=== PATIENT | female | born 1980 | race African-American/Black ===

== ENCOUNTER 2017-06-21 12:32 | Inpatient (IN) | payer OTHER ==
[2017-06-21 14:36] LABS: BILIRUBIN,URINE NEGATIVE (NEG); CLARITY,URINE CLEAR; COLOR,URINE YELLOW; GLUCOSE,URINE NEGATIVE (NEG); NITRITE,URINE NEGATIVE (NEG); PROTEIN,URINE NEGATIVE (NEG-TRACE)
[2017-06-21 14:55] LABS: BACTERIA,URINE FEW /HPF (0-FEW); RBC,URINE RARE /HPF (0-2); SQUAMOUS EPITHELIAL CELL,UR OCC /LPF
[2017-06-21] MEDS ORDERED: LIDOCAINE 1% PF 30 ML VIAL. INJ (18:15)
[2017-06-21] MEDS ORDERED: AMPICILLIN SODIUM 1 GM in IV NORMAL SALINE 50ML 50 ML IV (18:15)
[2017-06-21] MEDS ORDERED: AMPICILLIN SODIUM 2 GM in IV NORMAL SALINE 100ML 100 ML IV (18:15)
[2017-06-21] MEDS ORDERED: BUTORPHANOL 2 MG/ML VIAL. IV ×2 (18:15)
[2017-06-21] MEDS ORDERED: MAG HYDROX/ALUMINUM HYD/SIMETH 30 ML ORAL.SUSP PO (18:15)
[2017-06-21] MEDS ORDERED: OXYTOCIN 30 UNIT/500 ML PREMIX 500 ML IV (18:15)
[2017-06-21] MEDS ORDERED: TERBUTALINE 1 MG/ML VIAL. SQ (18:15)
[2017-06-21] MEDS ORDERED: 0.9 % SODIUM CHLORIDE 10 ML DISP.SYRIN. IV (18:15)
[2017-06-21] MEDS ORDERED: IBUPROFEN 600 MG TABLET. PO (18:15)
[2017-06-21] MEDS ORDERED: fentaNYL PF VIAL 100 MCG/2 ML VIAL IV (18:15)
[2017-06-21] MEDS: IV RINGERS,LACTATED 1000ML 1,000 ML IV ×2 (18:26)
[2017-06-21 19:13] LABS: BARBITURATES NEG (NEG); BENZODIAZEPINES NEG (NEG); CANNABINOIDS NEG (NEG); COCAINE NEG (NEG); METHADONE NEG (NEG); OPIATES NEG (NEG); PHENCYCLIDINE NEG (NEG)
[2017-06-21 19:24] LABS: AMPHETAMINE/METHAMPHETAMINE NEG (NEG); ETHANOL, URINE NEG (NEG)
[2017-06-21] MEDS: AMPICILLIN SODIUM IV Push 2 GM VIAL. IVP (19:41)
[2017-06-21 20:25] LABS: HEMATOCRIT 30.8 % (36.0-47.0); HEMOGLOBIN 10.3 g/dL (12.0-15.5); MEAN CORPUSCULAR HEMOGLOBIN 30 pg (25-35); MEAN CORPUSCULAR HGB CONC 33 g/dL (31-37); MEAN CORPUSCULAR VOLUME 91 fL (79-100); PLATELET COUNT 248 x10^3/uL (140-400); RED BLOOD COUNT 3.39 x10^6/uL (3.50-5.40); RED CELL DISTRIBUTION WIDTH 13.8 % (11.5-14.5); WHITE BLOOD COUNT 12.5 x10^3/uL (4.0-11.0)
[2017-06-21] MEDS: AMPICILLIN SODIUM IV Push 1 GM VIAL. IVP (23:32)
[2017-06-22] MEDS: OXYTOCIN 30 UNIT/500 ML PREMIX 500 ML IV (00:51)
[2017-06-22] MEDS: IV RINGERS,LACTATED 1000ML 1,000 ML IV ×2 (03:34→11:55)
[2017-06-22] MEDS: AMPICILLIN SODIUM IV Push 1 GM VIAL. IVP ×4 (04:10→15:00)
[2017-06-22] MEDS ORDERED: FAMOTIDINE 20 MG/2 ML VIAL ×2 (09:01→09:58)
[2017-06-22] MEDS ORDERED: fentaNYL PF VIAL 100 MCG/2 ML VIAL (09:59)
[2017-06-22] MEDS ORDERED: OXYTOCIN 10 UNIT/ML VIAL. (09:59)
[2017-06-22] MEDS ORDERED: MORPHINE PF 5 MG/10 ML VIAL. (09:59)
[2017-06-22] MEDS ORDERED: ONDANSETRON PF 4 MG/2 ML VIAL. (09:59)
[2017-06-22] MEDS: CITRIC ACID/SODIUM CITRATE 30 ML SOLUTION. PO (10:23)
[2017-06-22] MEDS ORDERED: MAGNESIUM HYDROXIDE 2,400 MG/30 ML ORAL.SUSP. PO (15:15)
[2017-06-22] MEDS ORDERED: ONDANSETRON PF 4 MG/2 ML VIAL. IV (15:15)
[2017-06-22] MEDS ORDERED: OXYTOCIN 30 UNIT/500 ML PREMIX 500 ML IV (15:15)
[2017-06-22] MEDS ORDERED: SIMETHICONE 80 MG TAB.CHEW PO (15:15)
[2017-06-22] MEDS ORDERED: MAG HYDROX/ALUMINUM HYD/SIMETH 30 ML ORAL.SUSP PO (15:15)
[2017-06-22] MEDS ORDERED: 0.9 % SODIUM CHLORIDE 10 ML DISP.SYRIN. IV (15:15)
[2017-06-22] MEDS ORDERED: MMR per PROTOCOL. MC (15:15)
[2017-06-22] MEDS ORDERED: ZOLPIDEM 5 MG TABLET. PO (15:15)
[2017-06-22] MEDS ORDERED: SUCCINYLCHOLINE 200 MG/10 ML VIAL. (15:20)
[2017-06-22] MEDS ORDERED: PHENYLEPHRINE in 0.9% NACL PF 1 MG/10 ML SYRINGE. IV (15:43)
[2017-06-22] MEDS: FERROUS SULFATE 325 MG TABLET. PO (17:00)
[2017-06-22] MEDS: KETOROLAC 30 MG/ML INJ. IV (18:08)
[2017-06-22] MEDS: IBUPROFEN 800 MG TABLET. PO (22:00)
[2017-06-22] MEDS ORDERED: ceFAZolin SODIUM 1 GM in IV DEXTROSE 5% 50 ML IV (22:00)
[2017-06-22] MEDS: ceFAZolin SODIUM IV Push 1 GM VIAL. IVP (23:35)
[2017-06-22] MEDS: diphenhydrAMINE ORAL ELIXIR 12.5 MG/5 ML ML PO (23:39)
[2017-06-23] MEDS: IV RINGERS,LACTATED 1000ML 1,000 ML IV ×3 (01:30→18:08)
[2017-06-23] MEDS: DOCUSATE SODIUM 100 MG CAPSULE. PO (05:34)
[2017-06-23] MEDS: oxyCODONE/APAP 5/325 1 TAB TABLET PO ×5 (05:34→20:07)
[2017-06-23] MEDS: ceFAZolin SODIUM IV Push 1 GM VIAL. IVP ×2 (05:35→13:55)
[2017-06-23] MEDS: IBUPROFEN 800 MG TABLET. PO ×3 (05:35→22:25)
[2017-06-23 05:36] LABS: ADD MAN DIFF? NO
[2017-06-23 05:42] LABS: BASO % 0 % (0-3); EOS # 0.1 x10^3/uL (0.0-0.7); EOS % 1 % (0-3); HEMATOCRIT 23.1 % (36.0-47.0); HEMOGLOBIN 7.7 g/dL (12.0-15.5); LYMPH # 2.8 x10^3/uL (1.0-4.8); LYMPH % 27 % (24-48); MEAN CORPUSCULAR HEMOGLOBIN 30 pg (25-35); MEAN CORPUSCULAR HGB CONC 33 g/dL (31-37); MEAN CORPUSCULAR VOLUME 91 fL (79-100); MONO # 0.8 x10^3/uL (0.0-1.1); MONO % 7 % (0-9); NEUT % 65 % (31-73); PLATELET COUNT 197 x10^3/uL (140-400); RED BLOOD COUNT 2.54 x10^6/uL (3.50-5.40); RED CELL DISTRIBUTION WIDTH 14.4 % (11.5-14.5); WHITE BLOOD COUNT 10.7 x10^3/uL (4.0-11.0)
[2017-06-23] MEDS: FERROUS SULFATE 325 MG TABLET. PO ×2 (08:14→17:00)
[2017-06-23 21:11] LABS: RPR Non Reactive (Non Reactive)
[2017-06-24] MEDS: DOCUSATE SODIUM 100 MG CAPSULE. PO ×2 (05:09→21:13)
[2017-06-24] MEDS: oxyCODONE/APAP 5/325 1 TAB TABLET PO ×3 (05:10→21:15)
[2017-06-24] MEDS: IBUPROFEN 800 MG TABLET. PO ×3 (09:45→18:15)
[2017-06-24] MEDS: FERROUS SULFATE 325 MG TABLET. PO ×2 (09:45→18:17)
[2017-06-25] MEDS: IBUPROFEN 800 MG TABLET. PO (05:54)
[2017-06-25] MEDS: oxyCODONE/APAP 5/325 1 TAB TABLET PO ×2 (05:55→14:50)
[2017-06-25] MEDS: DOCUSATE SODIUM 100 MG CAPSULE. PO (08:34)
[2017-06-25] MEDS: FERROUS SULFATE 325 MG TABLET. PO (08:34)
== END 2017-06-25 15:10 | disposition home or self-care (01) | DRG 765 ==
LOC: 3 SO LND 12:32 → 3 NORTH 06-22 18:50
PROC: 10D00Z1 Extraction of Products of Conception, Low, Open Approach (ICD-10-PCS; principal; 2017-06-22)
DX: O76 Abnormality in fetal heart rate and rhythm complicating labor and delivery (principal); O36.5930 Maternal care for other known or suspected poor fetal growth, third trimester, not applicable or unspecified; Z37.0 Single live birth; Z3A.38 38 weeks gestation of pregnancy
CPT/HCPCS: 36415; 76815; 80307; 81001; 85025; 85027; 86593; 86850; 86900; 86901; 87086; 88307; G0378; J0290; J0330; J0690; J1885; J2270; J2370; J2405; J2590; J3010; J7120; S0028

== ENCOUNTER 2017-11-08 08:51 | Emergency (ER) | payer SELFPAY, OTHER ==
[2017-11-08] MEDS: BUPIVACAINE 0.5% 50 ML VIAL. IJ (10:03)
[2017-11-08] MEDS: DIPHTH,PERTUSS(ACELL),TET TOX 0.5 ML DISP.SYRIN. VAX IM (10:05)
== END 2017-11-08 10:06 | disposition home or self-care (01) ==
LOC: ER 10:06
DX: N75.0 Cyst of Bartholin's gland (principal); N76.4 Abscess of vulva; F12.10 Cannabis abuse, uncomplicated; Z88.5 Allergy status to narcotic agent; Z88.6 Allergy status to analgesic agent; Z88.1 Allergy status to other antibiotic agents
CPT/HCPCS: 10060; 90471; 90715; 99283; J3490

== ENCOUNTER 2017-11-10 14:14 | Emergency (ER) | payer SELFPAY ==
[2017-11-10] MEDS ORDERED: LIDOCAINE 1% PF 30 ML VIAL. INJ (15:15)
[2017-11-10] MEDS ORDERED: LIDOCAINE 1% Multi-Dose 20 ML VIAL. INJ (15:15)
== END 2017-11-10 15:38 | disposition home or self-care (01) ==
LOC: ER 14:14
DX: N76.4 Abscess of vulva (principal); Z48.01 Encounter for change or removal of surgical wound dressing; F12.10 Cannabis abuse, uncomplicated
CPT/HCPCS: 10060; 99283

== ENCOUNTER 2017-11-12 11:17 | Emergency (ER) | payer SELFPAY | END 2017-11-12 12:50 | disposition home or self-care (01) | LOC: ER 11:17 | DX: N75.0 Cyst of Bartholin's gland (principal); F17.200 Nicotine dependence, unspecified, uncomplicated; Z88.6 Allergy status to analgesic agent; Z88.5 Allergy status to narcotic agent; Z88.1 Allergy status to other antibiotic agents | CPT/HCPCS: 99282 ==

== ENCOUNTER 2018-02-01 12:38 | Emergency (ER) | payer SELFPAY ==
[~2018-02-01] VITALS: Ht 165.1 cm; Wt 68.0 kg
[~2018-02-01 12:38] MED LIST: CEPH-264 PO; IBUP-1007 PO; METH-37 PO; NAPR-514 PO; OXYC-323 PO; SULF1TAB24 PO; TRAM50TA PO
[2018-02-01 13:07] VITALS: BP 132/88
[2018-02-01] MEDS ORDERED: KETOROLAC 60 MG/2 ML INJ. IM ONE (13:30)
[2018-02-01] MEDS ORDERED: LIDOCAINE WITH 8.4% SOD BICARB 3 ML DISP.SYRIN. INJ ONE (13:30)
[2018-02-01] MEDS ORDERED: SULF1TAB24 PO (13:55)
[2018-02-01] MEDS ORDERED: IBUP-1060 PO (13:55)
--- NOTE | 2018-02-01 13:56 | PHYS DOC ---
Past Medical History Past Medical History: Other Additional Past Medical Histor: back spasms, bartholin cyst Past Surgical History: Alcohol Use: Rarely Drug Use: Marijuana Adult General Chief Complaint Chief Complaint: VAGINAL PROBLEM HPI HPI Patient is a 37 year old female who presents with chronic by thoroughly and( and has had another one pop up on the left vaginal labia for the last 5-7 days. Patient states the pain is an 8 out of 10 and she has not taken any pain meds. Patient states that she has had some vaginal itching and discharge that is yellow-green in color. Patient states that she does not think that has a slow. Patient states that she does have some concerns for STDs. Review of Systems Review of Systems Constitutional: Denies fever or chills [] Eyes: Denies change in visual acuity, redness, or eye pain [] HENT: Denies nasal congestion or sore throat [] Respiratory: Denies cough or shortness of breath [] Cardiovascular: No additional information not addressed in HPI [] GI: Denies abdominal pain, nausea, vomiting, bloody stools or diarrhea [] : Denies dysuria or hematuria. Left vaginal labia Bartholin cyst. Vaginal Itching and discharge. [] Musculoskeletal: Denies back pain or joint pain [] Integument: Denies rash or skin lesions [] Neurologic: Denies headache, focal weakness or sensory changes [] Endocrine: Denies polyuria or polydipsia [] All other systems were reviewed and found to be within normal limits, except as documented in this note. Current Medications Current Medications Current Medications Medications (Trade) Dose Ordered Sig/[place] Start Time Stop Time Status Last Admin Dose Admin Azithromycin (Zithromax) 1,000 mg 1X ONCE 02/01/18 14:00 02/01/18 14:01 DC 02/01/18 13:40 1,000 MG Ceftriaxone Sodium (Rocephin Im) 250 mg 1X ONCE 02/01/18 14:00 02/01/18 14:01 DC 02/01/18 13:40 250 MG Ketorolac Tromethamine (Toradol Im) 60 mg 1X ONCE 02/01/18 13:30 02/01/18 13:31 DC 02/01/18 13:22 60 MG Lidocaine/Sodium Bicarbonate (Buffered Lidocaine 1%) 3 ml 1X ONCE 02/01/18 13:30 02/01/18 13:31 DC 02/01/18 13:21 3 ML Allergies Allergies Allergies Coded Allergies Type Severity Reaction Last Updated Verified oxycodone Allergy Severe Shortness of Air 11/12/17 Yes acetaminophen Allergy Intermediate Itching 11/08/17 Yes hydrocodone Allergy Intermediate Itching 11/08/17 Yes metronidazole Allergy Intermediate 11/08/17 Yes Physical Exam Physical Exam Constitutional: Well developed, well nourished, no acute distress, non-toxic appearance. [] HENT: Normocephalic, atraumatic, bilateral external ears normal, oropharynx moist, no oral exudates, nose normal. [] Eyes: PERRLA, EOMI, conjunctiva normal, no discharge. [] Neck: Normal range of motion, no tenderness, supple, no stridor. [] Cardiovascular:Heart rate regular rhythm, no murmur [] Lungs & Thorax: Bilateral breath sounds clear to auscultation [] Abdomen: Bowel sounds normal, soft, no tenderness, no masses, no pulsatile masses. [] Skin: Warm, dry, no erythema, no rash. Left vaginal labia cyst that is nondraining. [] Back: No tenderness, no CVA tenderness. [] Extremities: No tenderness, no cyanosis, no clubbing, ROM intact, no edema. [] Neurologic: Alert and oriented X 3, normal motor function, normal sensory function, no focal deficits noted. [] Psychologic: Affect normal, judgement normal, mood normal. [] Current Patient Data Vital Signs Vital Signs Date Time Temp Pulse Resp B/P (MAP) Pulse Ox O2 Delivery O2 Flow Rate FiO2 02/01/18 13:07 98.2 84 16 132/88 (103) 99 Room Air 98.2 Lab Values Microbiology 02/01/18 Wet Prep - Final, Complete EKG EKG [] Radiology/Procedures Radiology/Procedures [] Course & Med Decision Making Course & Med Decision Making Upon examination patient is currently on her menses. Patient does have a left inner labial Bartholin's cyst that is large grape-sized and firm. It is not draining. Patient also complains of vaginal irritation with yellow-green discharge and she has recently had sex. Upon pelvic exam there was some white discharge seen on the cervix but the cervix is pink. Patient does not have cervical motion tenderness upon bimanual exam. Cultures for Chlamydia and gonorrhea were taken along with microbiology. Patient is treated prophylactically for STDs. Patient's large cyst is numbed with buffering lidocaine and a 2cm incision. Purulent drainage was drained from the cyst. Packing could not be maintained and would not stay in. Patient to wear a pad to community discharge and is to take sitz baths and use ibuprofen for pain. Patient is given Toradol IM shot. Patient is given a prescription for Bactrim twice a day 7 days. Patient states that she will follow-up with her GROUT MACHINE OPERATOR of which she usually follows up with for the cysts. Patient is discharged home. Staff Physician Addendum: I was working in the ER during the course of this patient's visit. I was available for consultation as needed, but I was not directly involved in the care of this patient. Ramsey Chung DO Staff Physician [] Moy Disclaimer Dragon Disclaimer This electronic medical record was generated, in whole or in part, using a voice recognition dictation system. Departure Departure Impression: Primary Impression: Bartholin's cyst Disposition: HOME, SELF-CARE Condition: STABLE Referrals: NO PCP (PCP) Patient Instructions: Bartholin's Cyst or Abscess Additional Instructions: Follow up with your GROUT MACHINE OPERATOR as we talked about. Use ibuprofen for pain and do sitz baths. Scripts Ibuprofen (IBUPROFEN) 800 Mg Tablet 800 MG PO PRN Q6HRS PRN for INFLAMMATION, #10 TAB Prov: EMERY VAZQUEZ APRN 02/01/18 Sulfamethoxazole/Trimethoprim (BACTRIM DS TABLET) 1 Each Tablet 1 TAB PO BID, #14 TAB Prov: EMERY VAZQUEZ APRN 02/01/18 Incision and Drainage Incision and Drainage : Site: Left vaginal inner labia Blade Size: 11 I & D Procedure: betadine prep, sterile drapes applied, sterile dressing applied Progress 1% buffering lidocaine injected into site for numbing. 2cm incision in to the large grape sizes firm nodule and it produced purulent drainage and scant blood is drained from wound. There is still a nodule in the deeper tissues. Wound was packed but packing would not stay in. EMERY VAZQUEZ APRN Feb 01, 2018 13:55 RAMSEY CHUNG DO Feb 02, 2018 06:24
[2018-02-01] MEDS ORDERED: AZITHROMYCIN 250 MG TABLET. PO ONE (14:00)
[2018-02-01] MEDS ORDERED: cefTRIAXone IM 250 MG VIAL IM ONE (14:00)
[2018-02-03 15:30] LABS: GC PROBE Negative (Negative)
== END 2018-02-01 14:20 | disposition home or self-care (01) ==
LOC: ER 12:38
DX: N75.0 Cyst of Bartholin's gland (principal); Z98.890 Other specified postprocedural states; Z88.5 Allergy status to narcotic agent; Z88.6 Allergy status to analgesic agent
CPT/HCPCS: 56420; 87491; 87591; 96372; 99284; J0696; J1885; Q0111; Q0144; 10060

== ENCOUNTER 2018-04-03 11:54 | Emergency (ER) | payer SELFPAY ==
[~2018-04-03] VITALS: Ht 165.1 cm; Wt 65.8 kg
[~2018-04-03 11:54] MED LIST changes: +IBUP-1060 PO
[2018-04-03 12:25] VITALS: BP 129/65
[2018-04-03 12:45] LABS: BILIRUBIN,URINE NEGATIVE (NEG); CLARITY,URINE CLOUDY; COLOR,URINE YELLOW; NITRITE,URINE NEGATIVE (NEG); PH,URINE 6.5; PROTEIN,URINE NEGATIVE (NEG-TRACE)
[2018-04-03 13:01] LABS: SQUAMOUS EPITHELIAL CELL,UR MANY /LPF
[2018-04-03 13:02] LABS: BACTERIA,URINE MANY /HPF (0-FEW); WBC,URINE 20-40 /HPF (0-4)
[2018-04-03] MEDS ORDERED: NAPROXEN 500 MG TABLET PO STA (13:03)
[2018-04-03] MEDS ORDERED: CETIRIZINE HCL 10 MG TABLET. PO STA (13:03)
[2018-04-03] MEDS ORDERED: LIDOCAINE 2% TOPICAL JELLY 5GM TUBE. TP ONE (13:15)
[2018-04-03] MEDS ORDERED: HYDROcodone/APAP 5/325MG 1 TAB TABLET PO ONE (13:15)
[2018-04-03] MEDS ORDERED: predniSONE 20 MG TABLET PO ONE (14:15)
[2018-04-03] MEDS ORDERED: AZITHROMYCIN 250 MG TABLET. PO ONE (14:15)
[2018-04-03] MEDS ORDERED: cefTRIAXone IM 250 MG VIAL IM ONE (14:15)
[2018-04-03] MEDS ORDERED: metroNIDAZOLE 500 MG TABLET PO ONE (14:15)
[2018-04-03] MEDS ORDERED: METR500T PO (14:17)
[2018-04-03] MEDS ORDERED: PRED50TA PO (14:17)
[2018-04-03] MEDS ORDERED: NITR100C62 PO (14:17)
--- NOTE | 2018-04-03 14:18 | PHYS DOC ---
Past Medical History Past Medical History: Other Additional Past Medical Histor: back spasms, bartholin cyst Past Surgical History: Alcohol Use: Rarely Drug Use: Marijuana Adult General Chief Complaint Chief Complaint: VAGINAL PROBLEM HPI HPI Patient is a 37 year old female who presents today complaining of foul- smelling vaginal discharge for 3 months and lesions on her vagina that began a couple days ago. Patient denies any chance she is , denies any concerns for STDs. Review of Systems Review of Systems Constitutional: Denies fever or chills [] Eyes: Denies change in visual acuity, redness, or eye pain [] HENT: Denies nasal congestion or sore throat [] Respiratory: Denies cough or shortness of breath [] Cardiovascular: No additional information not addressed in HPI [] GI: Denies abdominal pain, nausea, vomiting, bloody stools or diarrhea [] : Reports vaginal discharge and vaginal lesions. Denies dysuria or hematuria [ ] Musculoskeletal: Denies back pain or joint pain [] Integument: Denies rash or skin lesions [] Neurologic: Denies headache, focal weakness or sensory changes [] All other systems were reviewed and found to be within normal limits, except as documented in this note. Current Medications Current Medications Current Medications Medications (Trade) Dose Ordered Sig/[place] Start Time Stop Time Status Last Admin Dose Admin Acetaminophen/ Hydrocodone Bitart (Lortab 5/325) 2 tab 1X ONCE 04/03/18 13:15 04/03/18 13:16 DC 04/03/18 13:29 2 TAB Cetirizine HCl (ZyrTEC) 10 mg 1X STAT 04/03/18 13:03 04/03/18 13:08 DC 04/03/18 13:29 10 MG Lidocaine HCl (Xylocaine 2% Topical 5gm Tube) 1 pilar 1X ONCE 04/03/18 13:15 04/03/18 13:16 DC 04/03/18 13:29 1 PILAR Naproxen (Naprosyn) 500 mg 1X STAT 04/03/18 13:03 04/03/18 13:08 DC 04/03/18 13:30 500 MG Allergies Allergies Allergies Coded Allergies Type Severity Reaction Last Updated Verified oxycodone Allergy Severe Shortness of Air 11/12/17 Yes acetaminophen Allergy Intermediate Itching 11/08/17 Yes hydrocodone Allergy Intermediate Itching 11/08/17 Yes metronidazole Allergy Intermediate 11/08/17 Yes Physical Exam Physical Exam Constitutional: Well developed, well nourished, no acute distress, non-toxic appearance. [] HENT: Normocephalic, atraumatic, bilateral external ears normal, oropharynx moist, no oral exudates, nose normal. [] Eyes: PERRLA, EOMI, conjunctiva normal, no discharge. [] Neck: Normal range of motion, no tenderness, supple, no stridor. [] Cardiovascular:Heart rate regular rhythm, no murmur [] Lungs & Thorax: Bilateral breath sounds clear to auscultation [] Abdomen: Bowel sounds normal, soft, no tenderness, no masses, no pulsatile masses. [] Pelvic exam External vaginal area is excoriated, there is moderate amount of blister-type lesions suspicious of herpes. Cervix is closed, no CMT, no adnexal tenderness, mild amount of greenish discharge in the vaginal vault. Skin: Warm, dry, no erythema, no rash. [] Back: No tenderness, no CVA tenderness. [] Extremities: No tenderness, no cyanosis, no clubbing, ROM intact, no edema. [] Neurologic: Alert and oriented X 3, normal motor function, normal sensory function, no focal deficits noted. [] Psychologic: Affect normal, judgement normal, mood normal. [] Current Patient Data Vital Signs Vital Signs Date Time Temp Pulse Resp B/P (MAP) Pulse Ox O2 Delivery O2 Flow Rate FiO2 04/03/18 12:25 98.0 76 18 129/65 (86) 97 Room Air 98.0 Lab Values Laboratory Tests Test 04/03/18 12:30 04/03/18 12:40 Urine Collection Type Unknown Urine Color Yellow Urine Clarity Cloudy Urine pH 6.5 Urine Specific [place] 1.025 Urine Protein Negative mg/dL (NEG-TRACE) Urine Glucose (UA) Negative mg/dL (NEG) Urine Ketones (Stick) Negative mg/dL (NEG) Urine Blood Small (NEG) Urine Nitrite Negative (NEG) Urine Bilirubin Negative (NEG) Urine Urobilinogen Dipstick 1.0 mg/dL (0.2 mg/dL) Urine Leukocyte Esterase Large (NEG) Urine RBC 1-2 /HPF (0-2) Urine WBC 20-40 /HPF (0-4) Urine Squamous Epithelial Cells Many /LPF Urine Bacteria Many /HPF (0-FEW) Urine Mucus Marked /LPF POC Urine HCG, Qualitative Hcg negative (Negative) Microbiology 04/03/18 Wet Prep - Final, Complete EKG EKG [] Radiology/Procedures Radiology/Procedures [] Course & Med Decision Making Course & Med Decision Making Pertinent Labs and Imaging studies reviewed. (See chart for details) This is a 37-year-old female patient presenting to the ED today with vaginal discharge and lesions on her vagina. Patient is denying any concerns for STDs. Physical exam is suspicious for herpes which patient has denied. She was swabbed for STDs including herpes. Wet prep noted for bacterial vaginosis and Trichomonas. Urine analysis is noted for infection. Patient was given Flagyl, Rocephin and azithromycin. Discharged with Macrobid for UTI. Follow-up with health department as needed. Dragon Disclaimer Dragon Disclaimer This electronic medical record was generated, in whole or in part, using a voice recognition dictation system. Departure Departure Impression: Primary Impression: Urinary tract infection Additional Impressions: Bacterial vaginosis Trichomonas vaginitis Disposition: HOME, SELF-CARE Condition: STABLE Referrals: NO PCP (PCP) Follow-up with the health department for further STD concerns Patient Instructions: Bacterial Vaginosis, Trichomoniasis-Brief, Urinary Tract Infection Additional Instructions: You tested positive for Trichomonas, this is a sexually transmitted disease. You were treated in the emergency room. You also have urinary tract infection and bacterial vaginosis. Complete your prescribed antibiotics. Follow-up with your own doctor or the health department in one week as needed. Use protection at all times. Do not have sex for 14 days. Contact all your sex partners, let them know you tested positive for Trichomonas and ask them to seek treatment too. Scripts Nitrofurantoin Monohyd/M-Cryst (MACROBID 100 MG CAPSULE) 100 Mg Capsule 1 CAP PO BID, #14 CAP Prov: MUTUNGA,DEANNE CUSTOMER SERVICER 04/03/18 Prednisone (PREDNISONE) 50 Mg Tablet 1 TAB PO DAILY, #5 TAB Prov: MUTUNGA,DEANNE CUSTOMER SERVICER 04/03/18 Metronidazole (FLAGYL) 500 Mg Tablet 1 TAB PO BID, #10 TAB Prov: MUTUNGA,DEANNE CUSTOMER SERVICER 04/03/18 Problem Qualifiers Primary Impression: Urinary tract infection Urinary tract infection type: site unspecified Hematuria presence: without hematuria Qualified Codes: N39.0 - Urinary tract infection, site not specified DEANNE GOOD APRN Apr 03, 2018 14:18
[2018-04-04 14:27] LABS: GC PROBE Negative (Negative)
[2018-04-06 15:10] LABS: HERPES SIMPLEX TYPE 1 Negative (Negative); HERPES SIMPLEX TYPE 2 Negative (Negative)
== END 2018-04-03 14:57 | disposition home or self-care (01) ==
LOC: ER 11:54
DX: A59.01 Trichomonal vulvovaginitis (principal); N39.0 Urinary tract infection, site not specified; N76.0 Acute vaginitis; B96.89 Other specified bacterial agents as the cause of diseases classified elsewhere
CPT/HCPCS: 36415; 81001; 81025; 87086; 87491; 87529; 87591; 96372; 99284; J0696; J7512; Q0111; Q0144

== ENCOUNTER 2019-02-23 17:17 | Emergency (ER) | payer SELFPAY ==
[~2019-02-23] VITALS: Ht 165.1 cm; Wt 54.4 kg
[~2019-02-23 17:17] MED LIST changes: +METR500T PO; +NITR100C62 PO; -OXYC-323 PO; +OXYC1TAB15 PO; +PRED50TA PO
[2019-02-23 18:05] VITALS: BP 105/69
[2019-02-23] MEDS ORDERED: PRED20TA PO (18:30)
[2019-02-23] MEDS ORDERED: ALBU2.5V8 INH (18:30)
[2019-02-23] MEDS ORDERED: BENZ100C PO (18:30)
[2019-02-23] MEDS ORDERED: AZIT250T PO (18:30)
--- NOTE | 2019-02-23 18:30 | PHYS DOC ---
Past Medical History Past Medical History: Other Additional Past Medical Histor: back spasms, bartholin cyst Past Surgical History: Smoking: Cigarettes Alcohol Use: Rarely Drug Use: Marijuana Adult General Chief Complaint Chief Complaint: COUGH HPI HPI 38-year-old female presents with one-week history of productive cough and generalized malaise. Reports coughing up "green thick "mucus. Patient reports in itially started with sore throat and nasal congestion had it since moved into her chest. Patient reports she has coughing "fits" and has sensation she is unable to breathe. Denies known sick contacts. Denies trauma. Denies . Review of Systems Review of Systems Constitutional: Denies fever or chills; reports generalized malaise Eyes: Denies redness or eye pain HENT: Reports nasal congestion and sore throat Respiratory: Reports productive cough and shortness of breath Cardiovascular: Denies chest pain or palpitations GI: Denies abdominal pain, nausea, or vomiting : Denies dysuria or hematuria Musculoskeletal: Denies back pain or joint pain Integument: Denies rash or skin lesions Neurologic: Denies headache, focal weakness or sensory changes Complete systems were reviewed and found to be within normal limits, except as documented in this note. Current Medications Current Medications Current Medications Medications (Trade) Dose Ordered Sig/[place] Start Time Stop Time Status Last Admin Dose Admin Dexamethasone (Decadron) 10 mg 1X ONCE 02/23/19 18:45 02/23/19 18:46 DC 02/23/19 18:38 10 MG Allergies Allergies Allergies Coded Allergies Type Severity Reaction Last Updated Verified oxycodone Allergy Severe Shortness of Air 11/12/17 Yes acetaminophen Allergy Intermediate Itching 11/08/17 Yes hydrocodone Allergy Intermediate Itching 11/08/17 Yes metronidazole Allergy Intermediate 11/08/17 Yes Physical Exam Physical Exam Constitutional: Well developed, well nourished, no acute distress, non-toxic appearance HENT: Normocephalic, atraumatic, oropharynx moist Eyes: Conjunctiva normal, no discharge Neck: Normal range of motion, no tenderness, supple Cardiovascular: Heart rate normal, regular rhythm Lungs & Thorax: Bilateral breath sounds clear equal but diminished at bases, poor effort, no rales or wheezes appreciated Abdomen: Soft, no tenderness Skin: Warm, dry, no erythema, no rash Extremities: No tenderness, ROM intact, no edema Neurologic: Alert and oriented X 3, no focal deficits noted Psychologic: Affect normal, judgement normal Current Patient Data Vital Signs Vital Signs Date Time Temp Pulse Resp B/P (MAP) Pulse Ox O2 Delivery O2 Flow Rate FiO2 02/23/19 18:05 98.4 96 18 105/69 (81) 96 Room Air 98.4 EKG EKG [] Radiology/Procedures Radiology/Procedures CXR 2 view (preliminary interpretation by ED physician): No acute process noted Course & Med Decision Making Course & Med Decision Making Pertinent Imaging studies reviewed. (See chart for details) Patient presents with report of productive cough times one week with generalized malaise. History of present illness and physical exam concerning for bro nchitis. Patient does report smoking history. Symptomatic treatment provided with oral steroid. Chest x-ray without focal pneumonia. Patient stable for discharge with outpatient follow-up with PCP. Discussed findings and plan with patient, who acknowledges understanding and agreement. Dragon Disclaimer Dragon Disclaimer This electronic medical record was generated, in whole or in part, using a voice recognition dictation system. Departure Departure Impression: Primary Impression: Bronchitis Disposition: 01 HOME, SELF-CARE Condition: STABLE Referrals: NO PCP (PCP) Patient Instructions: Acute Bronchitis, [id number] Additional Instructions: Hold antibiotics for 48 hours. If symptoms worsen or for fever > 100.3 F after 48 hours then start antibiotics as prescribed. Scripts Benzonatate (TESSALON PERLE) 100 Mg Capsule 1 CAP PO TID PRN for COUGH, #30 CAP Prov: SERGEY BHAGAT DO 02/23/19 Azithromycin (ZITHROMAX) 250 Mg Tablet 1 PKG PO UD for bronchitis, #6 TAB Take 2 tablets on day 1 and then 1 tablet each day for the next 4 days as directed Prov: SERGEY BHAGAT DO 02/23/19 Prednisone (PREDNISONE) 20 Mg Tablet 2 TAB PO DAILY, #8 TAB Start this prescription tomorrow, Saturday02/24/19 Prov: SERGEY BHAGAT DO 02/23/19 Albuterol Sulfate (Proair Hfa) 8.5 Gm Hfa.aer.ad 1 PUFF INH PRN Q6HRS PRN for WHEEZING, #1 INHALER Prov: SERGEY BHAGAT DO 02/23/19 SERGEY BHAGAT DO Feb 23, 2019 18:30
[2019-02-23] MEDS ORDERED: DEXAMETHASONE 4 MG TABLET PO ONE (18:45)
--- NOTE | 2019-02-23 21:31 | RAD ---
PA and lateral chest radiographs 02/23/2019 Clinical History: Cough. PA and lateral digital radiographs of the chest were obtained. No previous studies are available for comparison. The cardiac and mediastinal silhouettes are within normal limits in size and configuration. No pulmonary infiltrate is seen. No pleural effusion or pneumothorax is noted. The osseous structures are grossly intact. Impression: No radiographic evidence of active cardiopulmonary disease. Electronically signed by: Tom Phillips MD (02/23/2019 9:28 PM) [facility]
== END 2019-02-23 19:05 | disposition home or self-care (01) ==
LOC: ER 17:17
DX: J40 Bronchitis, not specified as acute or chronic (principal); F17.210 Nicotine dependence, cigarettes, uncomplicated; Z98.890 Other specified postprocedural states; Z88.5 Allergy status to narcotic agent; Z88.6 Allergy status to analgesic agent; Z88.8 Allergy status to other drugs, medicaments and biological substances
CPT/HCPCS: 71046; 99284; J8540

== ENCOUNTER 2020-03-21 20:28 | Emergency (ER) | payer SELFPAY ==
[~2020-03-21] VITALS: Ht 165.1 cm; Wt 54.5 kg
[~2020-03-21 20:28] MED LIST changes: +ALBU2.5V8 INH; +AZIT250T PO; +BENZ100C PO; +PRED20TA PO
[2020-03-21 20:59] LABS: BILIRUBIN,URINE SMALL (NEG); CLARITY,URINE CLEAR; COLOR,URINE AMBER; NITRITE,URINE NEGATIVE (NEG); PROTEIN,URINE 30 mg/dL (NEG-TRACE)
[2020-03-21] MEDS ORDERED: IV NORMAL SALINE 1000ML BAG 1,000 ML IV ONE (21:00)
--- NOTE | 2020-03-21 21:04 | PHYS DOC ---
Past Medical History Past Medical History: Other Additional Past Medical Histor: back spasms, bartholin cyst Past Surgical History: Smoking Status: Current Every Day Smoker Alcohol Use: Rarely Drug Use: Marijuana General Adult EDM: Chief Complaint: VAGINAL BLEEDING HPI: HPI: Patient is a 39 year old female who presents the ED today with vaginal bleeding that began a week ago. Patient states this is part of her normal cycle but the bleeding has gotten heavier since last night. She states today she has been soaking 2 (small) feminine pads in 1-1/2 hours. Patient denies any abdominal pain, denies any chance she is . She states she has had a similar episode before and had to be transfused. Review of Systems: Review of Systems: Constitutional: Denies fever or chills. [] Eyes: Denies change in visual acuity. [] HENT: Denies nasal congestion or sore throat. [] Respiratory: Denies cough or shortness of breath. [] Cardiovascular: Denies chest pain or edema. [] GI: Reports heavy vaginal bleeding. Denies abdominal pain, nausea, vomiting, bloody stools or diarrhea. [] : Denies dysuria. [] Musculoskeletal: Denies back pain or joint pain. [] Integument: Denies rash. [] Neurologic: Denies headache, focal weakness or sensory changes. [] Psychiatric: Denies depression or anxiety. [] Heart Score: Risk Factors: Risk Factors: DM, Current or recent (<one month) smoker, HTN, HLP, family history of CAD, obesity. Risk Scores: Score 0 - 3: 2.5% MACE over next 6 weeks - Discharge Home Score 4 - 6: 20.3% MACE over next 6 weeks - Admit for Clinical Observation Score 7 - 10: 72.7% MACE over next 6 weeks - Early Invasive Strategies Current Medications: Current Medications Medications (Trade) Dose Ordered Sig/[place] Start Time Stop Time Status Last Admin Dose Admin Sodium Chloride 1,000 ml @ 1,000 mls/hr 1X ONCE 03/21/20 21:00 03/21/20 21:59 Allergies: Allergies: Allergies Coded Allergies Type Severity Reaction Last Updated Verified oxycodone Allergy Severe Shortness of Air 11/12/17 Yes acetaminophen Allergy Intermediate Itching 11/08/17 Yes hydrocodone Allergy Intermediate Itching 11/08/17 Yes metronidazole Allergy Intermediate 11/08/17 Yes Physical Exam: PE: Constitutional: Well developed, well nourished, no acute distress, non-toxic appearance. [] HENT: Normocephalic, atraumatic, bilateral external ears normal, oropharynx moist, no oral exudates, nose normal. [] Eyes: PERRLA, EOMI, conjunctiva normal, no discharge. [] Neck: Normal range of motion, no tenderness, supple, no stridor. [] Cardiovascular:Heart rate regular rhythm, no murmur [] Lungs & Thorax: Bilateral breath sounds clear to auscultation [] Abdomen: Bowel sounds normal, soft, no tenderness, no masses, no pulsatile masses. [] Pelvic exam External pelvic appears normal, cervix is visualized, mild amount of bright red blood in the vaginal vault. No CMT, no adnexal tenderness Skin: Warm, dry, no erythema, no rash. [] Back: No tenderness, no CVA tenderness. [] Extremities: No tenderness, no cyanosis, no clubbing, ROM intact, no edema. [] Neurologic: Alert and oriented X 3, normal motor function, normal sensory function, no focal deficits noted. [] Psychologic: Affect normal, judgement normal, mood normal. [] EKG: EKG: [] Radiology/Procedures: Radiology/Procedures: [] Course & Med Decision Making: Course & Med Decision Making Pertinent Labs and Imaging studies reviewed. (See chart for details) This is a 39-year-old female patient presenting to the ED today complaining of heavy vaginal bleeding. Her cycle began a week ago and for the last 24 hours she states is getting heavier the point she has to use 2 (small) feminine pads in 1-1/2 hours. On physical exam she had mild amount of blood in the vaginal vault no pooling. Negative urine hcg. + UTI d/c on Cephalaxin. CBC with a normal WBC, hemoglobin 12.4, hematocrit 36.2. CMP with no acute findings. Pelvic ultrasound was negative for any acute findings noted for simple ovarian cyst on the left ovary. Vitals in the ED temperature 98.0 heart rate 83, respiration 20 on room air, blood pressure 154/92 O2 sats 98% Patient was provided an ORTHODONTIC LAB TECHNICIAN for follow-up. She was encouraged to consider getting maxipads for her cycles considering the heavy but not dropping her hemoglobin. Instructed to return to the ED at any point she starts soaking more than 1 maxi pad an hour. Dragon Disclaimer: Dragon Disclaimer: This electronic medical record was generated, in whole or in part, using a voice recognition dictation system. Departure Departure Impression: Primary Impression: Dysfunctional uterine bleeding Additional Impressions: Urinary tract infection Qualified Codes: N39.0 - Urinary tract infection, site not specified Ovarian cyst Qualified Codes: N83.202 - Unspecified ovarian cyst, left side Disposition: HOME, SELF-CARE Condition: STABLE Referrals: NO PCP (PCP) SERGEY HODGE MD follow up in one week Patient Instructions: Ovarian Cyst, [id number], Urinary Tract Infection, Uterine Bleeding, Dysfunctional, [id number] Additional Instructions: You were evaluated in the emergency room for vaginal bleeding. Your hemoglobin and hematocrit are normal. Your ultrasound was negative for any acute findings, you do have a simple cyst on the left ovary that can be followed up as an outpatient. Please consider getting maxipads for your cycles. You also have urinary tract infection, will put you on antibiotics, sure you complete them. Return to the emergency room at any point you start soaking of 1 maxi pad an hour or more. Follow-up with the provided ORTHODONTIC LAB TECHNICIAN. Scripts Cephalexin (CEPHALEXIN) 500 Mg Capsule 1 CAP PO BID, #14 CAP Prov: DEANNE GOOD APRN 03/21/20 DEANNE GOOD APRN Mar 21, 2020 21:04
[2020-03-21 21:15] LABS: BACTERIA,URINE MODERATE /HPF (0-FEW); RBC,URINE TNTC /HPF (0-2); WBC,URINE >40 /HPF (0-4)
[2020-03-21 21:15] LABS: BASO # 0.1 x10^3/uL (0.0-0.2); BASO % 1 % (0-3); EOS # 0.1 x10^3/uL (0.0-0.7); EOS % 1 % (0-3); HEMATOCRIT 36.2 % (36.0-47.0); HEMOGLOBIN 12.4 g/dL (12.0-15.5); LYMPH % 39 % (24-48); MEAN CORPUSCULAR HEMOGLOBIN 31 pg (25-35); MEAN CORPUSCULAR HGB CONC 34 g/dL (31-37); MEAN CORPUSCULAR VOLUME 89 fL (79-100); MONO # 0.5 x10^3/uL (0.0-1.1); MONO % 6 % (0-9); NEUT # 4.2 x10^3/uL (1.8-7.7); NEUT % 53 % (31-73); PLATELET COUNT 215 x10^3/uL (140-400); RED BLOOD COUNT 4.06 x10^6/uL (3.50-5.40); RED CELL DISTRIBUTION WIDTH 14.8 % (11.5-14.5); WHITE BLOOD COUNT 7.9 x10^3/uL (4.0-11.0)
[2020-03-21 21:18] LABS: U PREG PATIENT NEGATIVE (NEG)
[2020-03-21 21:25] LABS: CALCIUM 8.6 mg/dL (8.5-10.1); CREATININE 0.7 mg/dL (0.6-1.0); GFR 113.3; POTASSIUM 3.8 mmol/L (3.5-5.1)
[2020-03-21 21:30] LABS: ALBUMIN 3.5 g/dL (3.4-5.0); TOTAL PROTEIN 6.4 g/dL (6.4-8.2)
[2020-03-21 21:31] LABS: ALBUMIN/GLOBULIN RATIO 1.2 (1.0-1.7); TOTAL BILIRUBIN 0.2 mg/dL (0.2-1.0)
--- NOTE | 2020-03-21 22:49 | RAD ---
Pelvic ultrasound dated 03/21/2020. No comparison available. CLINICAL INDICATION: Vaginal bleeding. FINDINGS: Transabdominal pelvic ultrasound was performed. Uterus measures 9.8 x 6.8 x 5.3 cm. No focal uterine mass. Endometrial complex is normal in thickness for age measuring 10 mm. Right ovary measures 2.8 x 1.8 x 1.6 cm. Left ovary measures 3.0 x 2.6 x 1.8 cm. No adnexal mass. There is a small simple cyst or dominant follicle at the left ovary measuring up to 1.7 cm. Normal color Doppler flow to both ovaries. There is a trace amount of free fluid. IMPRESSION: 1. No acute sonographic abnormality. 2. Trace amount of free pelvic fluid, nonspecific. 3. Small simple cyst or dominant follicle at the left ovary. Electronically signed by: Eliceo Anderson MD (03/21/2020 10:46 PM) [email or web address]
[2020-03-21] MEDS ORDERED: CEPH500C PO (22:55)
[2020-03-21 23:19] VITALS: BP 121/68
== END 2020-03-21 23:30 | disposition home or self-care (01) ==
LOC: ER 20:28
DX: N93.8 Other specified abnormal uterine and vaginal bleeding (principal); N39.0 Urinary tract infection, site not specified; N83.202 Unspecified ovarian cyst, left side; F17.200 Nicotine dependence, unspecified, uncomplicated; F12.90 Cannabis use, unspecified, uncomplicated; Z98.890 Other specified postprocedural states; Z88.5 Allergy status to narcotic agent; Z88.8 Allergy status to other drugs, medicaments and biological substances
CPT/HCPCS: 36415; 76856; 80053; 81001; 81025; 85025; 86850; 86900; 86901; 87086; 96360; 99285; J7030